=== PATIENT | female | born 1960 | race Caucasian/White ===

== ENCOUNTER → 2017-04-13 | Outpatient (CLI) | payer MEDICARE, OTHER ==
[2017-04-13 15:28] LABS: RAPID PLASMA REAGIN SCREEN NON-REACTIVE (NON-REACTVE)
[2017-04-13 16:15] LABS: FOLATE GREATER THAN 20.0 NG/ML (3.1-17.5)
== END ==
LOC: CLAB 13:39
DX: G30.1 Alzheimer's disease with late onset (principal)
CPT/HCPCS: 36415; 82607; 82746; 84443; 86592